=== PATIENT | female | born 1970 | race Caucasian/White ===

== ENCOUNTER → 2020-03-21 06:55 | Outpatient (CLI) | payer OTHER, SELFPAY ==
--- NOTE | 2020-03-21 06:55 | DI.RAD.S_ITS ---
PROCEDURE: XR HIP W PEL IF DONE LT 2V INDICATIONS: LEFT HIP PAIN SINCE FALL TECHNIQUE: AP pelvis with lateral view(s) of the left hip(s). COMPARISON: None. FINDINGS: Bones: No fractures or dislocations. Pelvic ring appears intact. No suspicious bony lesions. Mild symmetric hip joint degeneration. Soft tissues: The visualized bowel gas pattern is normal. No suspicious soft tissue calcifications. IMPRESSION: No acute osseous abnormalities. If clinical symptoms persist or clinical suspicion for pathology is high, a repeat examination in 7-10 days, or advanced imaging such as CT or MRI is suggested for further evaluation. Dictated by: Jennifer Seymour M.D. on 03/21/2020 at 12:00 Approved by: Jennifer Seymour M.D. on 03/21/2020 at 12:02
== END ==
PROVIDERS: PCP Family Medicine; Referring Provider Family Medicine; Visit Provider Chiropractor
DX: M25.552 Pain in left hip (principal)
CPT/HCPCS: 73502

== ENCOUNTER → 2021-01-28 11:14 | Outpatient (CLI) | payer OTHER, SELFPAY ==
--- NOTE | 2021-01-28 11:17 | DI.MRI.S_ITS ---
PROCEDURE: MR LUMBAR SPINE WO CON INDICATIONS: Intervertebral disc disorders with radiculopathy, TECHNIQUE: Noncontrast sagittal T1 spin echo and T2 fast echo, sagittal STIR, axial T1 and T2 fast spin echo through the lumbar spine. In cases with scoliosis, additional coronal T2 fast spin echo may be performed. COMPARISON: None. FINDINGS: Image quality: Excellent. Alignment and Curvature: There is normal bony alignment. Bone Marrow: Marrow is of normal overall signal. No acute vertebral body compression fractures. Spinal Cord: Conus medullaris terminates at the L1-2 disc level. Visualized cord demonstrates normal signal and size. Paraspinous Soft Tissues: No paravertebral masses. T12-L1: Loss of disc signal. Mild, diffuse disc bulge. No central stenosis. No neural foraminal narrowing. No neural compression. Fissures noted in the annulus. L1-L2: Loss of disc signal. Mild, diffuse disc bulge. No central stenosis. No neural foraminal narrowing. No neural compression. L2-L3: Slight loss of disc signal. No central stenosis. No neural foraminal narrowing. No neural compression.. L3-L4: Loss of disc signal. Mild, diffuse disc bulge. No central stenosis. No neural foraminal narrowing. No neural compression. Fissure noted in the posterior annulus. L4-L5: Slight loss of disc signal. No central stenosis. No neural foraminal narrowing. No neural compression. L5-S1: Normal appearance. IMPRESSION: 1. Mild multilevel degenerative disc disease. 2. No central stenosis. 3. No neural foraminal narrowing. 4. No neural compression. 5. T12-L1 and L3-L4 disc annulus fissures. Dictated by: Loan Mendez MD, PhD on 01/28/2021 at 15:52 Approved by: Loan Mendez MD, PhD on 01/28/2021 at 15:55
== END ==
PROVIDERS: PCP Registered Nurse; Referring Provider Chiropractor; Visit Provider Chiropractor
DX: M51.16 Intervertebral disc disorders with radiculopathy, lumbar region (principal)
CPT/HCPCS: 72148

== ENCOUNTER → 2022-04-18 09:15 | Outpatient (CLI) | payer OTHER, SELFPAY ==
--- NOTE | 2022-04-18 09:17 | DI.MG.S_ITS ---
BILATERAL DIGITAL SCREENING MAMMOGRAM 3D/2D WITH CAD: 04/18/2022 CLINICAL: Routine screening. Comparison: 08/11/2013 Both breasts are heterogeneously dense, which may obscure small masses (category c / 51-75% glandular tissue). Current study was also evaluated with a Computer Aided Detection (CAD) system. There are new grouped coarse calcifications in the left breast at 6 o'clock middle depth. No other significant masses, calcifications, or other findings are seen in either breast. IMPRESSION: INCOMPLETE: NEEDS ADDITIONAL IMAGING EVALUATION The new grouped coarse calcifications in the left breast are indeterminate. Diagnostic mammogram for additional views to include mediolateral and spot magnification views is recommended. Based on the Tyrer Cuzick model (a risk assessment model) the patient's lifetime risk is 13.1% and her 10 year risk is 3.4%. According to the ACR, ACS, and NCCN guidelines, an annual breast MRI exam along with mammogram is recommended if the patient's lifetime risk is 20% or greater. This exam was interpreted at Station ID: [id number]. NOTE: For mammograms, a report in lay terms will be sent to the patient. Approximately 15% of breast malignancies will not be visualized mammographically. In the management of a palpable breast mass, a negative mammogram must not discourage biopsy of a clinically suspicious lesion. Electronically Signed By: Al Fraser M.D. at/:04/20/2022 07:28:09 letter sent: Additional Imaging Needed ACR BI-RADS Category 0: Incomplete 3340F
== END ==
PROVIDERS: PCP Registered Nurse Diabetes Educator; Referring Provider Registered Nurse Diabetes Educator; Visit Provider Registered Nurse Diabetes Educator
DX: Z12.31 Encounter for screening mammogram for malignant neoplasm of breast (principal)
CPT/HCPCS: 77063; 77067

== ENCOUNTER → 2022-05-20 08:52 | Outpatient (CLI) | payer OTHER, SELFPAY ==
--- NOTE | 2022-05-20 08:52 | DI.MG.S_ITS ---
UNILATERAL LEFT DIGITAL DIAGNOSTIC MAMMOGRAM 3D/2D WITH ADDITIONAL VIEWS: 05/20/2022 CLINICAL: Additional evaluation requested from prior study. Comparison is made to exam dated: 04/18/2022 mammogram - [facility]. The left breast is heterogeneously dense, which may obscure small masses (category c / 51-75% glandular tissue). The grouped coarse calcifications in the left breast at 6 o'clock middle depth are seen in additional views. No other significant masses or calcifications are seen in the breast. IMPRESSION: PROBABLY BENIGN The new grouped coarse calcifications in the left breast are probably benign. A follow-up mammogram in 6 months is recommended to demonstrate stability. Based on the Tyrer Cuzick model (a risk assessment model) the patient's lifetime risk is 13.1% and her 10 year risk is 3.4%. According to the ACR, ACS, and NCCN guidelines, an annual breast MRI exam along with mammogram is recommended if the patient's lifetime risk is 20% or greater. This exam was interpreted at Station ID: [id number]. NOTE: For mammograms, a report in lay terms will be sent to the patient. Approximately 15% of breast malignancies will not be visualized mammographically. In the management of a palpable breast mass, a negative mammogram must not discourage biopsy of a clinically suspicious lesion. Electronically Signed By: Inez ortez/:05/20/2022 14:15:57 letter sent: Followup Recommended ACR BI-RADS Category 3: Probably benign [id number]
== END ==
PROVIDERS: PCP Registered Nurse Diabetes Educator; Referring Provider Registered Nurse Diabetes Educator; Visit Provider Registered Nurse Diabetes Educator
DX: R92.8 Other abnormal and inconclusive findings on diagnostic imaging of breast (principal); R92.1 Mammographic calcification found on diagnostic imaging of breast
CPT/HCPCS: 77065; G0279

== ENCOUNTER → 2022-11-20 08:41 | Outpatient (CLI) | payer OTHER, SELFPAY ==
--- NOTE | 2022-11-20 | DI.MG.S_ITS ---
BILATERAL DIGITAL DIAGNOSTIC MAMMOGRAM 3D/2D: 11/20/2022 CLINICAL: Patient returns for 6 month follow up on left breast for calcifications. Palpable lump Right breast. Comparison is made to exams dated: 05/20/2022 mammogram and 04/18/2022 mammogram - [facility]. Both breasts are heterogeneously dense, which may obscure small masses (category c / 51-75% glandular tissue). There are stable grouped coarse calcifications in the left breast at 6 o'clock middle depth. These are seen in additional views. No other significant masses, calcifications, or other findings are seen in either breast. IMPRESSION: INCOMPLETE: NEEDS ADDITIONAL IMAGING EVALUATION The stable grouped coarse calcifications in the left breast are probably benign. 6 month mammogram recommended. There is no abnormality seen in the right axilla to correspond with the palpable abnormality in the right axilla, however, ultrasound is recommended. Based on the Tyrer Cuzick model (a risk assessment model) the patient's lifetime risk is 13.1% and her 10 year risk is 3.4%. According to the ACR, ACS, and NCCN guidelines, an annual breast MRI exam along with mammogram is recommended if the patient's lifetime risk is 20% or greater. This exam was interpreted at Station ID: [id number]. NOTE: For mammograms, a report in lay terms will be sent to the patient. Approximately 15% of breast malignancies will not be visualized mammographically. In the management of a palpable breast mass, a negative mammogram must not discourage biopsy of a clinically suspicious lesion. Electronically Signed By: Robert Heller M.D. lc/:11/20/2022 10:36:21 ACR BI-RADS Category 0: Incomplete 3340F
--- NOTE | 2022-11-20 | DI.US.S_ITS ---
ULTRASOUND OF RIGHT BREAST: 11/20/2022 CLINICAL: Palpable right breast lump. Comparison is made to exams dated: 11/20/2022 mammogram, 05/20/2022 mammogram, and 04/18/2022 mammogram - [facility]. Real-time ultrasound of the right breast was performed. Jj scale images of the real-time examination were reviewed. There is a 0.6 cm x 0.4 cm x 0.5 cm oval mass with a circumscribed margin in the right breast at 8 o'clock anterior depth 6 cm from the nipple. This correlates as palpated. IMPRESSION: PROBABLY BENIGN The 0.6 cm x 0.4 cm x 0.5 cm oval mass in the right breast might be a lymph node and is probably benign. A follow-up ultrasound in 6 months is recommended to demonstrate stability. Followup mammogram also recommended on left side to followup probably benign calcifications. Patient was advised to return for imaging sooner than 6months if she feels this palpable abnormality changing/enlarging. Clinical followup recommended. This exam was interpreted at Station ID: [id number]. Electronically Signed By: Robert Heller M.D. lc/:11/20/2022 10:39:02 letter sent: Followup Recommended Ultrasound BI-RADS: 3 Probably benign
[2022-11-20 11:31] LABS: Hematocrit 40.9 % (36-46); Hemoglobin 13.5 g/dL (12.0-16.0); Mean Corpuscular HGB Conc 33.1 % (30-36); Mean Corpuscular Hemoglobin 32.5 PG (26-34); Mean Corpuscular Volume 98.3 fL (80-100); Platelet Count 240 X10^3/uL (150-400); Red Blood Cell Count 4.16 X10^6/uL (4.0-5.2); Red Cell Distribution Width 12.5 % (11.6-14.8); White Blood Cell Count 7.5 X10^3/uL (4.5-11.0)
[2022-11-20 11:46] LABS: Alanine Aminotransferase 24 IU/L (<35); Albumin 4.4 g/dL (3.5-5.0); Albumin Globulin Ratio 1.4 (1.0-2.8); Alkaline Phosphatase 55 U/L (38-126); Aspartate Aminotransferase 26 IU/L (14-36); BUN Creatinine Ratio 16.4 (6-22); Bilirubin Total 0.2 mg/dL (0.2-1.3); Blood Urea Nitrogen 12 mg/dL (7-17); Calcium 9.1 mg/dL (8.4-10.2); Carbon Dioxide 22 mmol/L (22-32); Chloride 105 mmol/L (98-107); Cholesterol 206 mg/dL (140-199); Estimated Glomerular Filt Rate > 60 mL/min (>60); Globulin 3.1 g/dL (1.7-4.1); Glucose 101 mg/dL (70-100); HEMOLYSIS < 15 (0-50); Potassium 3.7 mmol/L (3.4-5.1); Sodium 137 mmol/L (137-145); Total Protein 7.5 g/dL (6.3-8.2); Triglycerides 57 mg/dL (35-150)
[2022-11-20 11:56] LABS: HDL Cholesterol 125 mg/dL (40-60); LDL Cholesterol Calculated 70 mg/dL (<100)
[2022-11-20 12:17] LABS: TSH w/ Reflex to FT4 2.35 uIU/mL (0.47-4.68)
== END ==
PROVIDERS: PCP Registered Nurse Diabetes Educator; Referring Provider Registered Nurse Diabetes Educator; Visit Provider Registered Nurse Diabetes Educator
DX: Z00.00 Encounter for general adult medical examination without abnormal findings (principal); R92.8 Other abnormal and inconclusive findings on diagnostic imaging of breast; R92.1 Mammographic calcification found on diagnostic imaging of breast; N63.13 Unspecified lump in the right breast, lower outer quadrant
CPT/HCPCS: 36415; 76642; 77066; 80053; 80061; 84443; 85027; G0279

== ENCOUNTER → 2022-12-28 10:56 | Outpatient (CLI) | payer OTHER, SELFPAY ==
--- NOTE | 2022-12-28 10:58 | DI.RAD.S_ITS ---
PROCEDURE: XR FINGER RT MIN 2V INDICATIONS: Laceration at dorsal PIP index TECHNIQUE: AP hand, 2 views of the 2nd finger(s) acquired. COMPARISON: None. FINDINGS: Bones: No fractures or dislocations. No suspicious bony lesions. Soft tissues: No suspicious soft tissue calcifications. No radiopaque foreign body. IMPRESSION: No visualized acute fracture or dislocation. However, if clinical concern and/or pain persist, short interval imaging followup in 7-10 days is recommended, as occult injury cannot be definitively excluded. Dictated by: Guadalupe Giron M.D. on 12/28/2022 at 11:49 Approved by: Guadalupe Giron M.D. on 12/28/2022 at 11:49
== END ==
PROVIDERS: PCP Registered Nurse Diabetes Educator; Referring Provider Student in an Organized Health Care Education/Training Program; Visit Provider Student in an Organized Health Care Education/Training Program
DX: S61.219A Laceration without foreign body of unspecified finger without damage to nail, initial encounter (principal); M79.89 Other specified soft tissue disorders; X58.XXXA Exposure to other specified factors, initial encounter
CPT/HCPCS: 73140

== ENCOUNTER → 2023-07-20 11:58 | Outpatient (CLI) | payer OTHER, SELFPAY ==
--- NOTE | 2023-07-20 11:59 | DI.MG.S_ITS ---
UNILATERAL LEFT DIGITAL DIAGNOSTIC MAMMOGRAM 3D/2D: 07/20/2023 CLINICAL: Short term follow up. Comparison is made to exams dated: 11/20/2022 mammogram, 05/20/2022 mammogram, 04/18/2022 mammogram, and 11/20/2022 ultrasound - [facility]. The left breast is heterogeneously dense, which may obscure small masses (category c / 51-75% glandular tissue). There are stable grouped coarse calcifications in the left breast at 6 o'clock middle depth. No other significant masses or calcifications are seen in the breast. IMPRESSION: PROBABLY BENIGN The stable grouped coarse calcifications in the left breast are probably benign. A follow-up diagnostic mammogram in 6 months is recommended to demonstrate stability. Targeted ultrasound is recommended for follow up of contralateral right breast ultrasound findings and will be performed immediately following this exam. Based on the Tyrer Cuzick model (a risk assessment model) the patient's lifetime risk is 13.3% and her 10 year risk is 3.6%. According to the ACR, ACS, and NCCN guidelines, an annual breast MRI exam along with mammogram is recommended if the patient's lifetime risk is 20% or greater. This exam was interpreted at Station ID: [id number]. NOTE: For mammograms, a report in lay terms will be sent to the patient. Approximately 15% of breast malignancies will not be visualized mammographically. In the management of a palpable breast mass, a negative mammogram must not discourage biopsy of a clinically suspicious lesion. Electronically Signed By: Stephane Rider M.D. ar/:07/20/2023 16:49:38 ACR BI-RADS Category 3: Probably benign [id number]
--- NOTE | 2023-07-20 13:33 | DI.US.S_ITS ---
LIMITED ULTRASOUND OF RIGHT BREAST: 07/21/2023 CLINICAL: Patient returns for additional imaging over a suspected mass in the right breast. Follow up from addtional views. Comparison is made to exams dated: 11/20/2022 ultrasound, 11/20/2022 mammogram, and 04/18/2022 mammogram - [facility]. Color flow and real-time ultrasound of the right breast 8 o'clock region were performed. Jj scale images of the real-time examination were reviewed. There is a 0.6 cm x 0.4 cm x 0.5 cm oval mass with a circumscribed margin in the right breast at 8 o'clock anterior depth 6 cm from the nipple. This oval mass displays fatty hilum. This abnormality is not significantly changed. IMPRESSION: PROBABLY BENIGN The 0.6 cm x 0.4 cm x 0.5 cm oval mass in the right breast resembles a lymph node and is probably benign. A follow-up mammogram and an ultrasound in 6 months is recommended to demonstrate stability. This exam was interpreted at Station ID: [id number]. Electronically Signed By: Stephane hong/toni:07/21/2023 08:15:47 letter sent: Followup Recommended Ultrasound BI-RADS: 3 Probably benign
== END ==
PROVIDERS: PCP Registered Nurse Diabetes Educator; Referring Provider Registered Nurse Diabetes Educator; Visit Provider Registered Nurse Diabetes Educator
DX: R92.8 Other abnormal and inconclusive findings on diagnostic imaging of breast (principal); R92.1 Mammographic calcification found on diagnostic imaging of breast; N63.13 Unspecified lump in the right breast, lower outer quadrant; R92.332 Mammographic heterogeneous density, left breast; Z80.3 Family history of malignant neoplasm of breast
CPT/HCPCS: 76642; 77065; G0279

== ENCOUNTER → 2023-08-10 09:08 | Outpatient (CLI) | payer OTHER, SELFPAY ==
--- NOTE | 2023-08-10 09:09 | DI.RAD.S_ITS ---
PROCEDURE: XR KNEE RT 3V INDICATIONS: eval R knee and thigh pain TECHNIQUE: 3 views of the knee were acquired. COMPARISON: None. FINDINGS: Bones: No fractures or dislocations. No suspicious bony lesions. Soft tissues: No joint effusion. No suspicious soft tissue calcifications. IMPRESSION: No acute bony abnormality or significant effusion. No significant degenerative change. Dictated by: Rolo Vo M.D. on 08/10/2023 at 9:55 Approved by: Rolo Vo M.D. on 08/10/2023 at 10:01
--- NOTE | 2023-08-10 09:09 | DI.RAD.S_ITS ---
PROCEDURE: XR FEMUR RT MIN 2V INDICATIONS: eval R knee and thigh pain TECHNIQUE: 2 views of the femur were acquired. COMPARISON: None. FINDINGS: Bones: No fractures or dislocations. No suspicious bony lesions. Bony protuberance of the femoral neck. Mild nonuniform joint space narrowing with osteophytic lipping of the acetabulum. Soft tissues: No suspicious soft tissue calcifications or masses. IMPRESSION: No acute bony abnormality. 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 Dictated by: Rolo Vo M.D. on 08/10/2023 at 10:01 Approved by: Rolo Vo M.D. on 08/10/2023 at 10:01
== END ==
PROVIDERS: PCP Registered Nurse Diabetes Educator; Referring Provider Registered Nurse Diabetes Educator; Visit Provider Registered Nurse Diabetes Educator
DX: M25.561 Pain in right knee (principal)
CPT/HCPCS: 73552; 73562

== ENCOUNTER → 2023-09-10 07:59 | Outpatient (CLI) | payer OTHER, SELFPAY ==
--- NOTE | 2023-09-10 08:00 | DI.MRI.S_ITS ---
PROCEDURE: MR HIP RT WO CON INDICATIONS: RIGHT HIP PAIN TECHNIQUE: Noncontrast coronal T1 spin echo and STIR through the bony pelvis. Coronal and axial T2 fast spin echo with fat saturation, sagittal T1 spin echo, and oblique axial T2 fast spin echo with fat saturation through the hip. COMPARISON: None. FINDINGS: Image quality: Excellent. Bones and joints: [id number] bilateral hip joint osteoarthritic changes are seen with superior joint space narrowing and subchondral sclerosis. No marrow edema. No fracture or dislocation. No avascular necrosis of the femoral heads. The visualized lower lumbar spine appears normally aligned. Tendons and ligaments: Low-grade partial-thickness tear involving distal right gluteus medius tendon at its insertion on greater trochanter is seen extending to musculotendinous junction. Distal right gluteus minimus tendinosis is also seen. The nearby proximal iliotibial band also appears intact. The iliopsoas tendon appears intact, without adjacent bursal fluid collections or evidence for impingement syndrome. Tendinosis involving origins of right hamstring tendons at ischial tuberosity is noted. Labrum and cartilage: There is thinning of articulating cartilage over right femoral head. Fraying of superior anterior labrum with T2 hyperintense signal is seen concerning for subtle superior anterior right hip labral tear. Soft tissues: Visualized muscles demonstrate normal bulk and internal signal. Quadratus femoris muscle demonstrates no internal edema to suggest ischiofemoral impingement. The proximal sciatic neurovascular bundle appears normal adjacent to the hamstring tendons. No free pelvic fluid. Bladder wall thickness is normal. Genitourinary structures and bowel loops appear normal where visualized. IMPRESSION: 1. Wakf-[id number] bilateral hip joint osteoarthritis. No pelvic or hip fracture. No evidence of avascular necrosis. 2. Low-grade partial-thickness tear involving distal right gluteus medius tendon extending to musculotendinous junction. Distal right gluteus minimus tendinosis. Tendinosis involving right hamstring tendon origins at ischial tuberosity. 3. Suggestion of subtle superior anterior right hip labral tear. Dictated by: Doron Ludwig M.D. on 09/10/2023 at 12:50 Approved by: Doron Ludwig M.D. on 09/10/2023 at 14:20
== END ==
LOC: MRI 07:59
PROVIDERS: PCP Registered Nurse Diabetes Educator; Referring Provider Orthopaedic Surgery; Visit Provider Orthopaedic Surgery
DX: M25.551 Pain in right hip (principal); M16.0 Bilateral primary osteoarthritis of hip; S76.011A Strain of muscle, fascia and tendon of right hip, initial encounter
CPT/HCPCS: 73721

== ENCOUNTER → 2024-02-08 10:22 | Outpatient (CLI) | payer OTHER, SELFPAY ==
--- NOTE | 2024-02-08 10:23 | DI.MG.S_ITS ---
BILATERAL DIGITAL DIAGNOSTIC MAMMOGRAM 3D/2D: 02/08/2024 CLINICAL: Short term follow up, due bilateral. Comparison is made to exams dated: 07/21/2023 ultrasound, 07/20/2023 mammogram, 11/20/2022 ultrasound, 11/20/2022 mammogram, 04/18/2022 mammogram, and 05/20/2022 mammogram - [facility]. The breasts are heterogeneously dense, which may obscure small masses (category c / 51-75% glandular tissue). There are stable grouped coarse calcifications in the left breast at 6 o'clock middle depth. No other significant masses, calcifications, or other findings are seen in either breast. IMPRESSION: INCOMPLETE: NEED ADDITIONAL IMAGING EVALUATION The stable grouped coarse calcifications in the left breast are probably benign. A follow-up diagnostic left mammogram in 6 months is recommended to demonstrate long-term stability. Targeted ultrasound is recommended for follow up of contralateral right breast ultrasound findings and will be performed immediately following this exam. Based on the Tyrer Cuzick model (a risk assessment model) the patient's lifetime risk is 13.8% and her 10 year risk is 4.0%. According to the ACR, ACS, and NCCN guidelines, an annual breast MRI exam along with mammogram is recommended if the patient's lifetime risk is 20% or greater. This exam was interpreted at Station ID: [id number]. NOTE: For mammograms, a report in lay terms will be sent to the patient. Approximately 15% of breast malignancies will not be visualized mammographically. In the management of a palpable breast mass, a negative mammogram must not discourage biopsy of a clinically suspicious lesion. Electronically Signed By: Stephane Rider M.D. ar/:02/09/2024 13:05:35 ACR BI-RADS Category 0: Incomplete: Need Additional Imaging Evaluation
--- NOTE | 2024-02-08 10:23 | DI.US.S_ITS ---
LIMITED ULTRASOUND OF RIGHT BREAST: 02/08/2024 CLINICAL: 6 month follow-up of cyst/node. Comparison is made to exams dated: 02/08/2024 mammogram, 07/21/2023 ultrasound, 07/20/2023 mammogram, 11/20/2022 ultrasound, 11/20/2022 mammogram, and 05/20/2022 mammogram - [facility]. Real-time ultrasound of the right breast 8 o'clock region was performed. Jj scale images of the real-time examination were reviewed. The oval mass in the right breast at 8 o'clock anterior depth 6 cm from the nipple is no longer seen. No significant abnormalities were seen sonographically in the right breast. IMPRESSION: PROBABLY BENIGN A follow-up left brast diagnostic mammogram and right breast diagnostic ultrasound in 6 months are recommended to demonstrate stability. This exam was interpreted at Station ID: [id number]. Electronically Signed By: Stephane Rider M.D. ar/:02/09/2024 13:08:06 letter sent: Followup Recommended ACR BI-RADS Category 3: Probably Benign
== END ==
LOC: MAMMO 10:22
PROVIDERS: PCP Registered Nurse Diabetes Educator; Referring Provider Registered Nurse Diabetes Educator; Visit Provider Registered Nurse Diabetes Educator
DX: R92.8 Other abnormal and inconclusive findings on diagnostic imaging of breast (principal); R92.1 Mammographic calcification found on diagnostic imaging of breast; R92.333 Mammographic heterogeneous density, bilateral breasts
CPT/HCPCS: 76642; 77066; G0279

== ENCOUNTER → 2024-07-25 09:31 | Outpatient (CLI) | payer OTHER, SELFPAY ==
[2024-07-25 10:11] LABS: Hematocrit 38.8 % (36-46); Hemoglobin 12.9 g/dL (12.0-16.0); Mean Corpuscular HGB Conc 33.2 % (30-36); Mean Corpuscular Hemoglobin 32.9 PG (26-34); Mean Corpuscular Volume 99.1 fL (80-100); Platelet Count 213 X10^3/uL (150-400); Red Blood Cell Count 3.91 X10^6/uL (4.0-5.2); White Blood Cell Count 5.2 X10^3/uL (4.5-11.0)
[2024-07-25 10:25] LABS: Alanine Aminotransferase 19 IU/L (<35); Albumin 4.3 g/dL (3.5-5.0); Albumin Globulin Ratio 1.5 (1.0-2.8); Alkaline Phosphatase 57 U/L (38-126); Aspartate Aminotransferase 27 IU/L (14-36); BUN Creatinine Ratio 17.1 (6-22); Bilirubin Total 0.6 mg/dL (0.2-1.3); Blood Urea Nitrogen 12 mg/dL (7-17); Calcium 8.6 mg/dL (8.4-10.2); Carbon Dioxide 22 mmol/L (22-32); Chloride 107 mmol/L (98-107); Cholesterol 197 mg/dL (140-199); Estimated Glomerular Filt Rate > 60 mL/min (>60); Globulin 2.9 g/dL (1.7-4.1); Glucose 106 mg/dL (70-99); HEMOLYSIS < 15 (0-50); Potassium 4.2 mmol/L (3.4-5.1); Sodium 136 mmol/L (137-145); Total Protein 7.2 g/dL (6.3-8.2); Triglycerides 56 mg/dL (35-150)
[2024-07-25 10:38] LABS: HDL Cholesterol 126 mg/dL (40-60); LDL Cholesterol Calculated 60 mg/dL (<100)
[2024-07-25 10:56] LABS: TSH w/ Reflex to FT4 2.49 uIU/mL (0.47-4.68)
== END ==
PROVIDERS: PCP Registered Nurse Diabetes Educator; Referring Provider Registered Nurse Diabetes Educator; Visit Provider Registered Nurse Diabetes Educator
DX: Z00.00 Encounter for general adult medical examination without abnormal findings (principal); R73.01 Impaired fasting glucose
CPT/HCPCS: 36415; 80053; 80061; 84443; 85027

== ENCOUNTER 2024-09-01 13:00 | Emergency (ER) | payer OTHER, SELFPAY ==
[2024-09-01] VITALS (9 sets, daily range): BP systolic 115–171; BP diastolic 60–77; PULSE 64–77; RESP 18; TEMP 36.6; O2SAT 100; BMI 21.8
--- NOTE | 2024-09-01 15:16 | ED_ITS ---
HPI - Eye Problem General Chief complaint: Eye Problems Stated complaint: vision issues right eye Time Seen by Provider: 09/01/24 14:32 Source: patient, RN notes reviewed and old records reviewed Mode of arrival: Ambulatory Limitations: no limitations History of Present Illness HPI Narrative: 54-year-old female wears contact notes dark flutter on right peripheral with flashing. Patient noticed last night states was initially sort of little bit black edge with some flashing she was had a floater in the opposite eye in the past states it was very similar but today has noticed a blush of red almost like an aerosol spray. She states she can see she states it seems to be fairly baseline but has gotten a little bit bigger overnight and into today. She does not have her contact in her right eye and states she was pretty significant decrease in vision describes Coke bottle glasses. She does not have her glasses with her she does have her contact in her left eye. Patient states no pain, no fevers. No discharge. No trauma or injuries that she recalls. She did have a floater in the left side was seen Optometry was told she had little bit of a recall in her retina at that time. Never required any intervention. She does not use any daily eyedrops. She was not had any prior surgeries. Related Data Previous Rx's ?Medication ?Instructions ?Recorded norgestimate 0.25 mg-ethinyl 1 tab PO DAILY #84 tabs 0 08/08/24 estradiol 0.035 mg tablet ([place]-Linyah) sumatriptan succinate 50 mg tablet See Rx Instructions PO .COMPLEX 08/08/24 (Imitrex) #10 tabs Allergies Allergy/AdvReac Type Severity Reaction Status Date / Time No Known Drug Allergies Allergy Unverified 08/08/24 14:45 Review of Systems Review of Systems ROS Unobtainable: All systems reviewed & are unremarkable except as noted in HPI and below Patient History Medical History Family history of breast cancer in mother Common migraine Left hip pain (~12/2019) Surgical History Anesthesia History of appendectomy History of tonsillectomy Social History Smoking Status: Never smoker Smoking Status: Never smoker Exam Narrative Exam Narrative: GENERAL: Alert and oriented x three, female in mild distress HEENT: Head normocephalic, atraumatic, EOMI, pupils reactive, face symmetric, moist mucous membranes NECK: Supple, full range of motion. Visual acuity: right can't see chart, can see shapes, faces and color without patients usual contacts or glasses, left [20/[address] with left contact in place. IOP: Right 15 mm Hg, Left 15 mm Hg General: no globe trauma Eyelids: normal inspection, eyelids everted for exam on right. Conjunctiva/Sclera: normal inspection Corneas: normal inspection, examined with fluroscein on right no uptake. EOM: intact, no palsy/entrapment Pupils: PERRL, normal accomadation, pupil normal Anterior Chambers: normal inspection, no hypema Posterior: normal fundoscopic on the left, patient has some darkness in the right peripheral, nondilated eye exam. No obvious retinal tear appreciated. CARDIOVASCULAR: Regular rate and rhythm without murmurs, rubs or gallops. RESPIRATORY: Breath sounds equal bilaterally, no wheezes rales or rhonchi. ABDOMEN: Soft, nontender. Normoactive bowel sounds all 4 quadrants. No guarding or rebound, rigidity, no mass : No CVA tenderness EXTREMITIES: Normal range of motion, no clubbing or edema. Neurovascularly intact NEUROLOGICAL: Cranial nerves II through XII grossly intact. Moving all extremities SKIN: Warm, dry, no petechiae, no rashes or lesions. Initial Vital Signs Initial Vital Signs: Vital Signs Temperature 97.9 F 09/01/24 13:12 Pulse Rate 77 09/01/24 13:12 Respiratory Rate 18 09/01/24 13:12 Blood Pressure 171/77 H 09/01/24 13:12 Pulse Oximetry 100 09/01/24 13:12 Oxygen Delivery Method Room Air 09/01/24 13:12 Course Orders Ordered: Discontinued Medications Fluorescein Sodium (Fluorescein 1 Mg Strip) 1 mg EYE-BOTH NOW ONE Stop: 09/01/24 15:18 Last Admin: 09/01/24 15:26 Dose: 1 mg Documented By: ERUM Proparacaine HCl (Proparacaine 0.5% Ophth Mary) 1 drops EYE-BOTH NOW ONE Stop: 09/01/24 15:18 Last Admin: 09/01/24 15:26 Dose: 1 dose Documented By: ERUM Vital Signs Vital signs: Vital Signs - 8 hr 09/01/24 13:12 09/01/24 13:22 09/01/24 13:22 Temperature 97.9 F Pulse Rate 77 72 Respiratory Rate 18 Blood Pressure 171/77 H 142/63 H Pulse Oximetry 100 100 Oxygen Delivery Method Room Air 09/01/24 13:30 09/01/24 13:30 09/01/24 14:00 Temperature Pulse Rate 69 66 Respiratory Rate Blood Pressure 115/62 Pulse Oximetry 100 100 Oxygen Delivery Method 09/01/24 14:00 09/01/24 14:30 09/01/24 14:30 Temperature Pulse Rate 65 Respiratory Rate Blood Pressure 119/64 122/61 Pulse Oximetry 100 Oxygen Delivery Method 09/01/24 14:38 09/01/24 14:38 09/01/24 15:00 Temperature Pulse Rate 66 64 Respiratory Rate Blood Pressure 142/63 H Pulse Oximetry 100 100 Oxygen Delivery Method 09/01/24 15:00 09/01/24 15:30 09/01/24 15:30 Temperature Pulse Rate 70 Respiratory Rate Blood Pressure 130/60 139/67 Pulse Oximetry 100 Oxygen Delivery Method 09/01/24 16:00 09/01/24 16:00 Temperature Pulse Rate 70 Respiratory Rate Blood Pressure 148/67 H Pulse Oximetry 100 Oxygen Delivery Method MDM - Eye Problem MDM Narrative Medical decision making narrative: Visual acuity 20/25 on the left, on the right unable to read anything. Contact present in the left. On eye exam patient's pressure, fluorescein exam showed no acute change, no clear retinal tear on exam but suspicion for tear or retinal bleed is high on my differential. Discussed this with the patient she sees optometry locally but they are closed unable to get through to be seen today. Discussed with the patient she was open to following up with Ophthalmology in [place] for further e valuation. Dr. Lei, ophthalmology reviewed patient's case they feel patient does need ophthalmology exam with a in the next 24 hours they would happy to be see the patient. Patient is felt appropriate to transfer by private vehicle. Patient states they have reliable transportation and feel comfortable transporting themselves. Patient chart sent with patient. Discharge Plan Departure Patient Disposition: [facility] Clinical Impression: Alteration in vision Activity Restrictions/Additional Instructions: Go to [facility] to be evaluated by Ophthalmology. My spoke with the on-call sample paster they are happy to see you. I do have concern that could have possible retinal tear or retinal bleed versus other causes. Prescriptions: No Action norgestimate-ethinyl estradiol [[place]-Linyah] 0.25-0.035 mg tablet 1 tab PO DAILY Qty: 84 4RF Rx Instructions: Taking active pills only 2 out of every 3 packs. sumatriptan succinate [Imitrex] 50 mg tablet See Rx Instructions PO .COMPLEX Qty: 10 3RF Rx Instructions: take 1 tab at onset of headache; if no relief may repeat 1 tab after at least 2 hrs; max = 4 tabs/24 hr PO Referrals: Jude Salinas ARNP [Primary Care Provider, Medical]
[2024-09-01] MEDS: PROPARACAINE 0.5% OPHTH SOL 1 DROPS EYE-BOTH (15:26)
[2024-09-01] MEDS: FLUORESCEIN 1 MG STRIP EYE-BOTH (15:26)
== END 2024-09-01 16:26 | disposition short-term general hospital (02) ==
PROVIDERS: Emergency Provider Emergency Medicine; PCP Registered Nurse Diabetes Educator
DX: H53.8 Other visual disturbances (principal)
CPT/HCPCS: 99282; 99283